=== PATIENT | male | born 1945 | race Caucasian/White ===

== ENCOUNTER 2016-09-06 08:23 | Day surgery (SDC) | payer BC ==
--- NOTE | ~2016-09-06 | EGD ---
EGD REPORT [facility] [address] [address] NAME: WALKER BURNETTE : [birth year] STATUS : REG [facility] [place] PAT#: [id number] AGE: 71 ADM/REG DATE : 09/06/16 MR#: [id number] REPORT SERV DATE: 09/06/16 DICTATED BY: CONNOR DE LA ROSA DATE: 09/06/16 REPORT STATUS : Draft TRANSCRIBED BY: [facility] DATE: 09/06/16 [facility] Center Patient Name: Walker Burnette Date of : 1945 Attending MD: CONNOR DE LA ROSA MD Procedure Date No Time: 09/06/2016 Procedure: Colonoscopy Indications: High risk colon cancer surveillance: Personal history of colonic polyps Referring MD: JASPREET LARIOS MD Medicines: Monitored Anesthesia Care Complications: No immediate complications. Procedure: Pre-Anesthesia Assessment: - ASA Grade Assessment: III - A patient with severe systemic disease. After I obtained informed consent, the scope was passed under direct vision. Throughout the procedure, the patient's blood pressure, pulse, and oxygen saturations were monitored continuously. The CF [id number] was introduced through the anus and advanced to the cecum, identified by appendiceal orifice and ileocecal valve. The colonoscopy was performed without difficulty. The patient tolerated the procedure well. The quality of the bowel preparation was good. Findings: The digital rectal exam was normal. Pertinent negatives include no palpable rectal lesions. Two sessile polyps were found in the ascending colon. The polyps were 2 to 3 mm in size. These polyps were removed with a cold biopsy forceps. Resection and retrieval were complete. Multiple diverticula were found in the sigmoid colon and in the descending colon. Hemorrhoids were found during retroflexion and were mild. Impression: - Two 2 to 3 mm polyps in the ascending colon. Resected and retrieved. - Diverticulosis in the sigmoid colon and in the descending colon. - Hemorrhoids. Recommendation: - Patient has a contact number available for emergencies. The signs and symptoms of potential delayed complications were discussed with the patient. Return to normal activities tomorrow. Written discharge EGD REPORT [address] [address] NAME: WALKER BURNETTE : [birth year] STATUS : REG [facility]#: [id number] AGE: 71 ADM/REG DATE : 09/06/16 MR#: [id number] REPORT SERV DATE: 09/06/16 DICTATED BY: CONNOR DE LA ROSA DATE: 09/06/16 REPORT STATUS : Draft TRANSCRIBED BY: Nicholas Haddox Records DATE: 09/06/16 instructions were provided to the patient. - Regular diet. - Continue present medications. - Await pathology results. - Repeat colonoscopy in 5 years for surveillance. - Return to GI clinic PRN. Procedure Code(s): --- Professional --- 37964, Colonoscopy, flexible, proximal to splenic flexure; with biopsy, single or multiple Diagnosis Code(s): --- Professional --- D12.2, Benign neoplasm of ascending colon K64.9, Unspecified hemorrhoids K57.30, Diverticulosis of large intestine without perforation or abscess without bleeding Z86.010, Personal history of colonic polyps CPT copyright 2013 [employer]. All rights reserved. The codes documented in this report are preliminary and upon lathe spotter review may be revised to meet current compliance requirements. CONNOR DE LA ROSA MD 09/06/2016 10:51 AM This report has been signed electronically. Number of Addenda: 0 Note Initiated On: 09/06/2016 10:26 AM Scope Withdrawal Time 0 hours 10 minutes 23 seconds [id number] [place] [id number]
[~2016-09-06 08:23] MED LIST: FARXIGA5 PO; GLUCPH PO; MAGNESIUM PO; MULTIPLE VIT PO; PRINZIDE1 TAB PO; TOUJEO SC; TRULICITY1.5 MG/0.5 SQ; WELLXL300 PO; ZOCOR80 MG PO; ZYRTEC ALLGY10 MG PO; [UNRECOGNIZED DRUG - OTHER] PO; [UNRECOGNIZED DRUG - OTHER] PO
== END 2016-09-06 23:59 | disposition home or self-care (01) ==
LOC: DMU 08:23
PROVIDERS: Internal Medicine Gastroenterology
PROC: 0DBK8ZZ Excision of Ascending Colon, Via Natural or Artificial Opening Endoscopic (ICD-10-PCS; principal; 2016-09-06 10:30)
DX: Z12.11 Encounter for screening for malignant neoplasm of colon (principal); K63.89 Other specified diseases of intestine; K64.9 Unspecified hemorrhoids; K57.30 Diverticulosis of large intestine without perforation or abscess without bleeding; I10 Essential (primary) hypertension; E11.9 Type 2 diabetes mellitus without complications; E78.00 Pure hypercholesterolemia, unspecified; I25.10 Atherosclerotic heart disease of native coronary artery without angina pectoris; H26.9 Unspecified cataract; Z95.5 Presence of coronary angioplasty implant and graft; Z87.01 Personal history of pneumonia (recurrent); Z85.46 Personal history of malignant neoplasm of prostate; Z86.010 Personal history of colon polyps; Z98.890 Other specified postprocedural states; Z87.891 Personal history of nicotine dependence
CPT/HCPCS: 82962; 88305